=== PATIENT | female | born 1940 | race Caucasian/White ===

== ENCOUNTER 2016-08-03 10:30 | Emergency (ER) | payer MEDICARE, BC ==
[~2016-08-03 10:30] MED LIST: ASACOL PO; CALTRA600D PO; DIOVAN HC1 PO; FISH-EPA1000 MG PO; FORTICAL200 MG/ACT NAS; GLUCPH PO; LOM PO; LOP25 PO; ONGLYZA5 MG PO; OS500+D PO; PREV30 PO; V2 PO; VITAMIN D1000 UNI1 PO; WELCHOL 625 MG625 MG PO
== END 2016-08-03 13:06 | disposition home or self-care (01) ==
LOC: ER 10:30
DX: S96.912A Strain of unspecified muscle and tendon at ankle and foot level, left foot, initial encounter (principal); Z79.899 Other long term (current) drug therapy; W22.8XXA Striking against or struck by other objects, initial encounter
CPT/HCPCS: 73630-LT; 99283